=== PATIENT | female | born 1965 | race American Indian/Alaskan Native ===

== ENCOUNTER 2020-05-30 07:15 | Day surgery (SDC) | payer OTHER ==
--- NOTE | 2020-05-28 16:50 | History and Physical Report ---
History of Present Illness Date of examination: 05/26/20 History of present illness: Patient has been reassessed/reevaluated. H&P has been reviewed. No interval changes. This is a 54 years old female who presents with pelvic pain. The symptoms began 6 weeks ago. She denies dysuria, dysmenorrhea, dyspareunia, vaginal itching, vaginal discharge, vaginal odor, painful bowel movements, constipation, diarrhea, nausea, vomiting, back pain and fever. Pain is located suprapubic. She describes the pain as dull. Duration of pain is 5 min - 1 hour. Episodes are intermittent and unpredictable. Patient's work up has included a transvaginal ultrasound which revealed a thicken endometrium possible intracavitary mass. Patient was offered a hysterosonogram but opted for hysterscopy. Patient desires definitive diagnostic procedure.. Vital Signs: Patient Profile: 54 Years Old Female Height: 64.5 inches (163.83 cm) Weight: 224 pounds BMI: 37.85 Temp: 97.1 degrees F BP sittin / 60 (left arm) Current Method of Contraception: None Date of Last Pap Smear: 09/19/2019 Past History : 5 Term Births: 4 Premature Births: 0 Living Children: 4 Para: 4 Mult. Births: 0 Prev : 0 Aborta: 1 Elect. Ab: 1 Spont. 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 of genital herpes: yes Hx of STD: HPV Current Allergies (reviewed today): No known allergies Past Medical History: Diverticulosis colonoscopy 2016 negative Family History Summary: No Family History of Breast Cancer No Family History of Colon Cancer No Family History of Ovarvian Cancer No Family History of DVT/PE on OCP Social History: Patient is Risk Factors: Smoked Tobacco Use: Never smoker Smokeless Tobacco Use: Never Passive smoke exposure: no Drug use: no HIV high-risk behavior: no Caffeine use: 1 drinks per day Alcohol use: no Exercise: yes Times per week: 1 Seatbelt use: 100 % PAP Smear History: Date of Last PAP Smear: 09/19/2019 Review of Systems General Denies fever, chills, sweats, anorexia, fatigue, weakness, malaise, weight loss and sleep disorder. Complains of pelvic pain. Denies vaginal discharge, incontinence, dysuria, hematuria, urinary frequency, amenorrhea, menorrhagia, abnormal vaginal bleeding, genital sores, decreased libido, painful periods, painful sex, urinary urgency, hot flashes, vaginal dryness, vaginal itching and vaginal odor. CV Denies chest pains, palpitations, syncope, dyspnea on exertion, orthopnea, PND and peripheral edema. Resp Denies cough, dyspnea at rest, excessive sputum, hemoptysis, wheezing and pleurisy. GI Denies nausea, vomiting, diarrhea, constipation, change in bowel habits, abdominal pain, melena, hematochezia, jaundice, gas/bloating, indigestion/heartburn, dysphagia and odynophagia. Breast Denies left breast lump, right breast lump, nipple discharge, bloody discharge from nipple, breast pain, abnormal mammogram and breast enlargement. Psych Denies depression, anxiety, irritability and mood swings. Patient has been reassessed/reevaluated/re-examined. H&P has been reviewed. No interval changes. Past History Past Medical History: other (SEE HPI FOR DETAILS) Past Surgical History: Other (SEE HPI FOR DETAILS) Social history: full code, other (SEE HPI FOR DETAILS) Family history: other (SEE HPI FOR DETAILS) Medications and Allergies Allergies Allergy/AdvReac Type Severity Reaction Status Date / Time No Known Allergies Allergy Unverified 05/23/20 17:43 Home Medications Medication Instructions Recorded Confirmed Last Taken Type Ibuprofen 1 tab PO PRN 05/23/20 05/23/20 05/09/20 History Review of Systems Constitutional: other (SEE HPI FOR DETAILS) Exam - Physical Exam Narrative exam: HEENT: normocephalic, no lesions or deformities Skin no lesions Chest: respiratory effort normal, clear to auscultation CV: regular, normal S1-S2, no murmur, no rub, no gallop Abdomen: Obese,soft, non-tender, no masses, bowel sounds normal Neuro: no gross anomalities Extremities: no edema 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 No evidence of cystocele or rectocele. Cervix: normal appearance, no lesions, no discharge, lacerated Uterus: unable to palpate due to obesity Adnexae: unable to palpate due to obesity Rectovaginal: Rectal exam deferred due to colonoscopy recently performed or is planned Assessment and Plan - Patient Problems (1) Endometrial mass Current Visit: No Status: Acute Plan to address problem: Diagnosis explained to patient . Questions answered. Patient desires hysteroscopy ndications for and description of the hysteroscopy given. .Discussed risk of surgery including infection, bleeding and risk of perforating her uterus. Questions answered. Patient understands and desires to proceed (2) Pelvic pain Current Visit: No Status: Acute (3) Diverticulosis Current Visit: No Status: Chronic
[~2020-05-30 07:15] MED LIST: ACETAMINOPHEN 500 MG TAB PO SCH; LACTATED RINGERS 1,000 ML IV SCH; MIDAZOLAM 2 MG/2 ML INJ IV NR
[2020-05-30] MEDS ORDERED: ONDANSETRON 4 MG/2 ML INJ IV PRN (08:59)
[2020-05-30] MEDS ORDERED: fentaNYL 100 MCG/2 ML INJ IV PRN (08:59)
[2020-05-30] MEDS ORDERED: HYDROcodone/ACETAMINOPHEN 5-325 MG TAB PO PRN (08:59)
--- NOTE | 2020-05-30 08:59 | Anesthesia Consultation ---
Anesthesia Consult and Med Hx Date of service: 05/30/20 - Airway Anesthetic Teeth Evaluation: Good ROM Head & Neck: Adequate Mental/Hyoid Distance: Adequate Mallampati Class: Class III Intubation Access Assessment: Possibly Difficult - Pre-Operative Health Status ASA Pre-Surgery Classification: ASA1 Proposed Anesthetic Plan: General - Pulmonary Hx Smoking: No Hx Respiratory Symptoms: No - Cardiovascular System Hx Hypertension: No - Central Nervous System CVA: No - Endocrine Hx Renal Disease: No Hx Liver Disease: No Hx Insulin Dependent Diabetes: No Hx Non-Insulin Dependent Diabetes: No Hx Thyroid Disease: No - Other Systems Hx Obesity: Yes (BMI 39) - Additional Comments Anesthesia Medical History Comments: No hx anesthetic complications.
--- NOTE | 2020-05-30 08:59 | Anesthesia Day of Surgery ---
Anesthesia Day of Surgery - Day of Surgery Patient Examined: Yes Patient H&P Reviewed: Yes Patient is NPO: Yes
[2020-05-30] MEDS ORDERED: LIDOCAINE MPF (2%) 20 MG/1 ML VIAL 5 ML ONE (09:37)
[2020-05-30] MEDS ORDERED: propofoL 200 MG/20 ML VIAL IV ONE (09:37)
[2020-05-30] MEDS ORDERED: fentaNYL 100 MCG/2 ML INJ ONE (09:58)
[2020-05-30] MEDS ORDERED: PHENYLEPHRINE/NS 1,000 MCG/10 ML SYRINGE (OR USE) IV ONE (10:08)
[2020-05-30] MEDS ORDERED: KETOROLAC 30 MG/1 ML INJ ONE (10:08)
[2020-05-30] MEDS ORDERED: dexAMETHasone 20 MG/5 ML VIAL ONE (10:08)
[2020-05-30] MEDS ORDERED: ONDANSETRON 4 MG/2 ML INJ ONE (10:08)
[2020-05-30] MEDS ORDERED: SODIUM CHLORIDE 0.9% IRRIG SOLN 2000 ML IR ONE (10:12)
[2020-05-30] MEDS ORDERED: SILVER NITRATE APPLICATOR 1 EA TP ONE ×2 (10:24→10:43)
--- NOTE | 2020-05-30 10:44 | Operative Report ---
Operative Report Operative Report: Date of procedure: May 30, 2020 Pre-operative diagnosis: Endometrial mass Post-operative diagnosis: Probable intracavitary leiomyomata Procedure name(s): Hysteroscopy with endometrial biopsy D&C Surgeon: Rah Bush MD Supervisor Production Department: [] Anesthesia: General EBL: Minimal Complications: None Findings: Patient with any cavity endometrial mass, patible with a leiomyomata. The mass did occupy most of the cavity I did see the right fallopian tube ostium could not visualize the left ostium Specimen(s): Endometrial biopsy and curettage Procedure: Patient was brought to operating room. Where general anesthesia was induced on difficulty. She was placed in the dorsal lithotomy position. Prepped and draped in usual sterile manner. Urinary bladder was emptied with a red rubber catheter. Speculum was placed in the vagina. Tenaculum was placed at 12:00. The cervix was dilated progressively to operative hysteroscope could be placed without any difficulty. The hysteroscope was placed through the cervical os without any complications with the findings noted above. Biopsy obtained of the mass using an Allis clamp. Perform a banjo curetting which removes of minimal amount of tissue. The passes with the polyp forceps revealed no further tissue again the banjo curetting was done without any return of further tissue. Our instruments are removed. Silver nitrate was needed to achieve hemostasis from the tenaculum punctures. The patient tolerated the procedure well and was awakened in the operating room. Accompanied to the recovery room in good condition
--- NOTE | 2020-05-30 10:52 | Short Stay Summary ---
Short Stay Documentation Date of service: 05/30/20 - History Past Medical History: other (SEE HPI FOR DETAILS) Past Surgical History: Other (SEE HPI FOR DETAILS) Social history: full code, other (SEE HPI FOR DETAILS) - Allergies and Medications Current Medications: Allergies No Known Allergies Allergy (Unverified 05/23/20 17:43) Home Medications Medication Instructions Recorded Confirmed Last Taken Type Ibuprofen 1 tab PO PRN 05/23/20 05/23/20 05/09/20 History DOXYCYCLINE Hyclate [Vibramycin 100 mg PO Q12HR #14 capsule 05/30/20 Unknown Rx CAP] Ibuprofen [Motrin 800 MG tab] 800 mg PO Q6H PRN #30 tablet 05/30/20 Unknown Rx Active Medications Acetaminophen (Acetaminophen 500 Mg Tab) 1,000 mg PO PREOP MAYCO Stop: 05/30/20 23:59 Last Admin: 05/30/20 08:45 Dose: 1,000 mg Documented by: Hydrocodone Bitart/Acetaminophen (Hydrocodone/Acetaminophen 5-325 Mg Tab) 2 each PO ONCE PRN PRN Reason: Pain, Moderate (4-6) Fentanyl (Fentanyl 100 Mcg/2 Ml Inj) 50 mcg IV Q5MIN PRN PRN Reason: Pain , Severe (7-10) Lactated Ringer's (Lactated Ringers) 1,000 mls @ 100 mls/hr IV DIRECT MAYCO Stop: 05/30/20 23:59 Last Admin: 05/30/20 08:50 Dose: 100 mls/hr Documented by: Midazolam HCl (Midazolam 2 Mg/2 Ml Inj) 2 mg IV PREOP NR Stop: 05/30/20 23:59 Last Admin: 05/30/20 08:50 Dose: 2 mg Documented by: Ondansetron HCl (Ondansetron 4 Mg/2 Ml Inj) 4 mg IV ONCE PRN PRN Reason: Nausea And Vomiting - Physical exam HEENT: Atraumatic Lungs: Normal air movement Breasts: deferred Heart: Regular rate Gastrointestinal: normal Female Genitourinary: normal Rectal Exam: deferred Extremities: no ischemia, pulses intact - Brief post op/procedure progress note Date of procedure: 05/30/20 (See dictated operative note for details) Specimen disposition: to lab Condition: stable - Hospital course Hospital course: Patient was admitted underwent the above him procedure without any complications. Patient will be discharged with follow-up in office in 1-2 weeks for postop check. - Disposition Condition at discharge: Good Disposition: [id number] TO HOME OR SELFCARE - Discharge Diagnoses (1) Endometrial mass Status: Acute (2) Pelvic pain Status: Acute (3) Diverticulosis Status: Chronic Short Stay Discharge Plan Activity: advance as tolerated Diet: regular Follow up with: PRIMARY CARE, [Primary Care Provider] - 7 Days Prescriptions: Ibuprofen [Motrin 800 MG tab] 800 mg PO Q6H PRN #30 tablet PRN Reason: Pain DOXYCYCLINE Hyclate [Vibramycin CAP] 100 mg PO Q12HR #14 capsule
--- NOTE | 2020-05-30 11:39 | Post Anesthesia Evaluation ---
- Post Anesthesia Evaluation Patient Participated: Yes Airway Patent: Yes Stable Respiratory Function: Yes Nausea/Vomiting: No Temp > 96.8F: Yes Pain Manageable: Yes Adequeate Hydration: Yes Anesthesia Complications: No
[2020-05-30 12:20] VITALS: BP 135/67
== END 2020-05-30 07:16 | disposition home or self-care (01) ==
LOC: OR 07:15
PROVIDERS: ATTEND Obstetrics & Gynecology
DX: N94.89 Other specified conditions associated with female genital organs and menstrual cycle (principal); N85.8 Other specified noninflammatory disorders of uterus; E78.00 Pure hypercholesterolemia, unspecified; E66.9 Obesity, unspecified; Z72.89 Other problems related to lifestyle; Z79.899 Other long term (current) drug therapy; Z68.39 Body mass index [BMI] 39.0-39.9, adult; Z98.890 Other specified postprocedural states
CPT/HCPCS: 58558; 88305; A4217; J1100; J1885; J2250; J2370; J2405; J2704; J3010; J7120

== ENCOUNTER 2020-11-27 06:08 | Day surgery (SDC) | payer OTHER ==
--- NOTE | 2020-11-24 13:16 | Anesthesia Consultation ---
Anesthesia Consult and Med Hx Date of service: 11/27/20 - Airway Anesthetic Teeth Evaluation: Good ROM Head & Neck: Adequate Mental/Hyoid Distance: Adequate Mallampati Class: Class II Intubation Access Assessment: Good - Pre-Operative Health Status ASA Pre-Surgery Classification: ASA2 Proposed Anesthetic Plan: General Nerve Block: TAP - Pulmonary Hx Respiratory Symptoms: No - Central Nervous System Hx Psychiatric Problems: No - Endocrine Hx Insulin Dependent Diabetes: No Hx Non-Insulin Dependent Diabetes: No Hx Thyroid Disease: No - Other Systems Hx Alcohol Use: Yes (OCC WINE) Hx Cancer: No Hx Obesity: Yes (BMI 39)
[2020-11-24 13:32] LABS: Hematocrit 39.6 % (30.3-42.9); Hemoglobin 13.4 gm/dl (10.1-14.3); Mean Corpuscular HGB Conc 34 % (30-34); Mean Corpuscular Volume 89 fl (79-97); Platelet Count 310 K/mm3 (140-440); Red Blood Count 4.44 M/mm3 (3.65-5.03); Red Cell Distribution Width 14.2 % (13.2-15.2)
[2020-11-24 13:40] LABS: Blood Urea Nitrogen 11 mg/dL (7-17); Calcium 9.4 mg/dL (8.4-10.2); Hemolysis Index 12
[2020-11-24 13:51] LABS: BUN/Creatinine Ratio 18
[2020-11-24 16:53] LABS: Total Cells Counted 100
[2020-11-24 16:54] LABS: Platelet Estimate Consistent w Auto; RBC Morphology Normal
--- NOTE | 2020-11-25 10:31 | History and Physical Report ---
History of Present Illness Date of examination: 11/24/20 History of present illness: Patient has been reassessed/reevaluated. H&P has been reviewed. No interval changes. This is a 54 years old female who presents with pelvic pain and submucous leiomyoma. The symptoms began 4 months ago. She denies dysuria, dysmenorrhea, dyspareunia, vaginal itching, vaginal discharge, vaginal odor, painful bowel movements, constipation, diarrhea, nausea, vomiting, back pain and fever. Pain is located suprapubic. She describes the pain as dull. Duration of pain is 5 min - 1 hour. Episodes are intermittent and unpredictable. Patient's work up has included a transvaginal ultrasound which revealed a thicken endometrium poss ible intracavitary mass. Patient also underwent a hysteroscopy with D&C..Patient's symptoms when present disrupts her normal daily activities Patient desires definitive treatment ] Vital Signs: Patient Profile: 55 Years Old Female Height: 64.5 inches (163.83 cm) Weight: 223 pounds BMI: 37.68 Temp: 97.2 degrees F BP sittin / 60 (left arm) Current Method of Contraception: None Date of Last Pap Smear: 09/19/2019 Past History : 5 Term Births: 4 Premature Births: 0 Living Children: 4 Para: 4 Mult. Births: 0 Prev : 0 Aborta: 1 Elect. Ab: 1 Spont. Ab: 0 Ectopics: 0 Current Allergies (reviewed today): No known allergies Past Medical History: diverticulosis colonoscopy 2016 negative Submucosal Fibroids (05/30/2020) Past Surgical History: Knee Arthroscopy Right has had upper and lwoer gi Hysteroscopy with D&C: (05/30/2020) Family History Summary: eneral Comments - FH: No Family History of Breast Cancer No Family History of Colon Cancer No Family History of Ovarvian Cancer No Family History of DVT/PE on OCP Social History: Patient is Smoking History: Patient has never smoked. Risk Factors: Smoked Tobacco Use: Never smoker Smokeless Tobacco Use: Never Passive Smoke Exposure: no Caffeine Use: 1 drinks per day Exercise: yes Times/wk: 1 Seatbelt Use: 100 % PAP Smear History: Date of Last PAP Smear: 09/19/2019 [employer] [employer] History Operations: Knee Arthroscopy Right has had upper and lwoer gi Hysteroscopy with D&C: (05/30/2020) Abnormal PAP: positive Infection History HIV Risk Eval: no Personal hx. of genital herpes: yes Hx of STD: HPV Review of Systems General Denies fever, chills, sweats, anorexia, fatigue, weakness, malaise, weight loss and sleep disorder. Complains of pelvic pain. Denies vaginal discharge, incontinence, dysuria, hematuria, urinary frequency, amenorrhea, menorrhagia, abnormal vaginal bleeding, genital sores, decreased libido, painful periods, painful sex, urinary urgency, hot flashes, vaginal dryness, vaginal itching and vaginal odor. CV Denies chest pains, palpitations, syncope, dyspnea on exertion, orthopnea, PND and peripheral edema. Resp Denies cough, dyspnea at rest, excessive sputum, hemoptysis, wheezing and pleurisy. GI Denies nausea, vomiting, diarrhea, constipation, change in bowel habits, abdominal pain, melena, hematochezia, jaundice, gas/bloating, indigestion/heartburn, dysphagia and odynophagia. Breast Denies left breast lump, right breast lump, nipple discharge, bloody discharge from nipple, breast pain, abnormal mammogram and breast enlargement. Psych Denies depression, anxiety, irritability and mood swings. Past History Past Medical History: other (SEE HPI FOR DETAILS) Past Surgical History: Other (SEE HPI FOR DETAILS) Social history: full code, other (SEE HPI FOR DETAILS) Family history: other (SEE HPI FOR DETAILS) Medications and Allergies Allergies Allergy/AdvReac Type Severity Reaction Status Date / Time No Known Allergies Allergy Unverified 11/21/20 16:26 Home Medications Medication Instructions Recorded Confirmed Last Taken Type Ibuprofen [Motrin 800 MG tab] 800 mg PO Q6H PRN #30 tablet 05/30/20 11/21/20 Unknown Rx Active Meds: Active Medications Acetaminophen (Acetaminophen 500 Mg Tab) 1,000 mg PO ONCE ONE Stop: 11/27/20 06:01 Celecoxib (Celecoxib 200 Mg Cap) 400 mg PO PREOP NR Stop: 11/27/20 23:59 Fentanyl (Fentanyl 100 Mcg/2 Ml Inj) 100 mcg IV ONCE ONE Stop: 11/27/20 06:01 Cefazolin Sodium (Ancef/Sterile Water 2 Gm/20 Ml) 2 gm in 20 mls @ 80 mls/hr IV PREOP NR; Protocol Stop: 11/27/20 21:00 Lactated Ringer's (Lactated Ringers) 1,000 mls @ 125 mls/hr IV DIRECT MAYCO Magnesium Oxide (Magnesium Oxide 400 Mg Tab) 400 mg PO ONCE ONE Stop: 11/27/20 06:01 Midazolam HCl (Midazolam 2 Mg/2 Ml Inj) 2 mg IV PREOP NR Stop: 11/27/20 23:59 Review of Systems Constitutional: other (SEE HPI FOR DETAILS) Exam - Physical Exam Narrative exam: HEENT: normocephalic, no lesions or deformities Skin no lesions Chest: respiratory effort normal, clear to auscultation CV: regular, normal S1-S2, no murmur, no rub, no gallop Abdomen: Obese,soft, non-tender, no masses, bowel sounds normal Neuro: no gross anomalities Extremities: no edema [employer] Exams Vulva/Vagina: normal appearance, no discharge, lesions. No evidence of cystocele or rectocele. Cervix: normal appearance, no lesions, no discharge, lacerated Uterus: unable to palpate due to obesity Adnexae: unable to palpate due to obesity Rectovaginal: Rectal exam deferred due to colonoscopy recently performed or is planned - Constitutional Vitals: Temp Pulse Resp BP Pulse Ox 98.1 F 81 18 132/76 100 11/24/20 12:25 11/24/20 12:25 11/24/20 12:25 11/24/20 12:25 11/24/20 12:25 Results - Labs CBC & Chem 7: 11/24/20 12:30 11/24/20 10:20 Labs: Abnormal lab results 11/24/20 Range/Units 12:30 WBC 3.8 L (4.5-11.0) K/mm3 Seg Neuts % (Manual) 34.0 L (40.0-70.0) % Lymphocytes % (Manual) 60.0 H (13.4-35.0) % Seg Neutrophils # Man 1.3 L (1.8-7.7) K/mm3 Assessment and Plan - Patient Problems (1) Submucous leiomyoma of uterus Current Visit: No Status: Acute Plan to address problem: Diagnosis explained to patient . Questions answered. Discussed with patient various medical, surgical and radiological therapies common for treatment including expectant management, myomectomy hysterectomy and uterine artery embolization Patient's symptoms when present disrupts her normal daily activities Patient desires definitive treatment .Patient desires hysterectomy Discussed risks and benefits of laparotomy, laparoscopy, vaginal and robotic assisted approaches for hysterectomies Patient desires robotic assisted total hysterectomy. Consent reviewed and signed . The risks and alternatives for this surgery were reviewed with the patient. Discuss the risks of the surgery including infection, bleeding possibly heavy enough to require a blood transf usion, possible damage to bowel, bladder or ureter. Patient understand that this surgery with make her sterile.Patient understands if her ovaries are removed she will become menopausal. Also if unable to complete robitcally a laparotomy may be required. Also discussed due to COVID epidemic and limitations on the hospital's inpatient bed availability ,if upon the initial laparoscopic veiw of her anatomy rules her out as a candidate for outpatient robotic asstisted surgery the procedure will be stopped. and she will be recheduled. Patient understands and desires to proceed. (2) Pelvic pain Current Visit: No Status: Acute Plan to address problem: Probably secondary to # 1 (3) Diverticulosis Current Visit: No Status: Chronic
[~2020-11-27 06:08] MED LIST changes: +ACETAMINOPHEN 500 MG TAB PO ONE; -ACETAMINOPHEN 500 MG TAB PO SCH; +CELECOXIB 200 MG CAP PO NR; -LACTATED RINGERS 1,000 ML IV SCH; +MAGNESIUM OXIDE 400 MG TAB PO ONE; +fentaNYL 100 MCG/2 ML INJ IV ONE
[2020-11-27] MEDS ORDERED: ceFAZolin/Water 2 GM/20 ML 2 GM/20 ML SYRINGE IV NR (07:00)
[2020-11-27] MEDS ORDERED: ROCURONIUM 50 MG/5 ML INJ IV ONE ×2 (07:17→09:32)
[2020-11-27] MEDS ORDERED: propofoL 200 MG/20 ML VIAL IV ONE (07:17)
[2020-11-27] MEDS ORDERED: KETAMINE/STERILE WATER 50 MG/ML SYRINGE ONE (07:17)
[2020-11-27] MEDS ORDERED: ONDANSETRON 4 MG/2 ML INJ ONE (07:17)
[2020-11-27] MEDS ORDERED: LIDOCAINE MPF (2%) 20 MG/1 ML VIAL 5 ML ONE (07:17)
[2020-11-27] MEDS ORDERED: dexAMETHasone 20 MG/5 ML VIAL ONE (07:17)
[2020-11-27] MEDS: LACTATED RINGERS 1,000 ML IV SCH ×3 (07:20→13:30)
[2020-11-27] MEDS ORDERED: BUPIVACAINE/PF (0.25%) 2.5 MG/ML 30 ML VIAL INFILTRATI ONE (07:21)
[2020-11-27] MEDS ORDERED: dexAMETHasone 4 MG/ML VIAL ONE (07:21)
--- NOTE | 2020-11-27 07:24 | Anesthesia Day of Surgery ---
Anesthesia Day of Surgery - Day of Surgery Patient Examined: Yes Patient H&P Reviewed: Yes Patient is NPO: Yes
[2020-11-27] MEDS ORDERED: NEOMY 40 MG/POLYMYXIN B 200,000 UNITS/ML (GU) AMPULE IR ONE ×2 (07:25→08:46)
[2020-11-27] MEDS ORDERED: ONDANSETRON 4 MG/2 ML INJ IV PRN (08:30)
[2020-11-27] MEDS ORDERED: HYDROmorphone 1 MG/1 ML INJ IV PRN (08:30)
[2020-11-27] MEDS ORDERED: fentaNYL 100 MCG/2 ML INJ ONE (08:38)
[2020-11-27] MEDS ORDERED: SODIUM CHLORIDE 0.9% IRR 1,500 ML BOTTLE IR ONE (08:46)
[2020-11-27] MEDS ORDERED: SODIUM CHLORIDE 0.9% IRRIG SOLN 2000 ML IR ONE (08:47)
[2020-11-27] MEDS ORDERED: ePHEDrine SULFATE 50 MG/1 ML INJ ONE (09:33)
[2020-11-27] MEDS ORDERED: LACTATED RINGERS 1,000 ML ONE (09:53)
[2020-11-27] MEDS ORDERED: KETOROLAC 30 MG/1 ML INJ ONE (10:08)
[2020-11-27] MEDS ORDERED: NEOSTIGMINE 10MG/10 ML INJ MDV ONE (10:16)
[2020-11-27] MEDS ORDERED: GLYCOPYRROLATE 0.4 MG/2 ML INJ ONE (10:16)
[2020-11-27] MEDS ORDERED: HYDROcodone/ACETAMINOPHEN 5-325 MG TAB PO PRN (10:24)
--- NOTE | 2020-11-27 10:30 | Operative Report ---
Operative Report Operative Report: Operative Report: Date of procedure: November 27, 2020 Pre-operative diagnosis: Pelvic pain, submucous leiomyomata Post-operative diagnosis: Same plus pelvic adhesive disease Procedure name(s): Robotic assisted total hysterectomy with bilateral salpingo- oophorectomy with lysis of adhesions Surgeon: Rah Bush MD Flight Service Specialist: Solange Wayne, certified registered locksmith Anesthesia: General EBL: 50 mL Complications: None Findings: Uterus approximately 8-10 weeks in size. Patient with omental adhesions on anterior abdominal wall adhesions between the uterus and bilateral adnexa and adnexa and pelvic sidewalls. Patient also with adhesions and posterior cul-de-sac. Normal-appearing ovaries. Specimen(s): Uterus including cervix was bilateral adnexa Procedure: Patient was brought to the operating room where general anesthesia was induced without difficulty. Patient was placed in the dorsal lithotomy position. Prepped and draped in the usual sterile manner for robotic procedure. [place] catheter was placed without difficulty. Speculum was placed in the vagina. A medium V-Care Uterine manipulator was placed without difficulty. Attention was now switched to the patient's abdomen. A vertical supra-umbilicus incision was made with a scalpel. A 10-12 trocar was placed in this incision under direct visualization. Intra-abdominal placement was verified with no evidence of internal organ damage. The patient was insufflated approximately 3- 1/2 L of CO2 gas. The patient pelvic findings were noted as above. It was determined that the patient was a candidate for robotic procedure. On both sides the umbilical incision at 8 cm, incisions were made for robotic trocar. Each robotic trocar was placed under direct visualization with no evidence of internal organ damage. One middle [employer] assistant principal ports were then placed. One 5 mm trocar was placed 2 fingerbreadths above the right iliac crest. Through the right lower quadrant trocar 5 mm laparoscope was then placed visualizing the midline incision. The midline trocar was then removed a Mono Bustos fascial closure system was in place under direct visualization. The large trocar was then placed again through the incision. At this time the patient was placed in extreme Trendelenburg. The da Anuj robot was then docked on the patient's left side. The trochars was then connected the da Anuj robotic arms. At this time I took my place under the robotic operating loving. The omental adhesions were taken down sharply with the robotic scissors. The adhesions on both of the adnexa and between the uterus and abdominal sidewall, normalized in the patient's anatomy. Then starting on the patient's right side using the vessel sealer with the right ureter was clearly seen out of the operative field. The ovarian vessels were clearly seen cauterize and cut with the robotic scissors. The meso salpinx were cauterized and cut reaching to the round ligament. The round ligament was cauterized and cut. The leaves of the broad ligament on that side was anteriorly and posteriorly. The anterior leaves were use to form a bladder flap anteriorly the posterior leaf was cut exposing the uterine vessels on that side. The uterine vessels were cauterized and cut the bladder flap was more clearly made. Attention was then switched to the patient's left side. Where the ureter was again identified and cleared out of the field. The same procedure was cauterized and cut and the ovarian vessels and receiving with some incising the round ligament broad the broad ligament then cauterized and cut and the uterine vessels were performed.. At this time the uterus was appearing very cyanotic. After inspecting the bladder flap insured no evidence of bladder injury, the colpotomy was then started. Incision started at 6:00 using a robotic scissors until the V-Care could be seen. This incision was extended from 6:00 to 9:00. Then from 6:00 to 3:00. Then from 9:00 to 12:00. This incision was extended from 3:00 to 12:00. At this time colpotomy was complete with no evidence of adjacent organ damage. The middle school assistant principal remove the uterus from through the colpotomy site. The vaginal cuff was irrigated and cauterized and found to be hemostatic. The cuff was closed with roboticly using 0 V- Lock suture. This closure was hemostatic after irrigation and Bovie. All pedicles were inspected and found to be hemostatic. The ureters were identified bilaterally and found to be functioning normal. The [place] bag had clear yellow urine. Surgicell powder was placed across the vaginal cuff. All instruments were then removed. The large trocar site was closed in layers and 4-0 Monocryl. The smaller incisions were closed subcuticularly with 4-0 Monocryl. The patient tolerated procedure well. She was awakened in the operating room and accompanied to the recovery room in good condition.
[2020-11-27] MEDS: HYDROmorphone 1 MG/1 ML INJ IV PRN ×4 (11:19→13:04)
[2020-11-27 14:27] VITALS: BP 130/63
--- NOTE | 2020-11-27 14:42 | Short Stay Summary ---
Short Stay Documentation Date of service: 11/27/20 - History Principal diagnosis: Submucosal leiomyomata with pelvic pain H&P: dictated Past Medical History: other (SEE HPI FOR DETAILS) Past Surgical History: Other (SEE HPI FOR DETAILS) Social history: full code, other (SEE HPI FOR DETAILS) - Allergies and Medications Current Medications: Allergies No Known Allergies Allergy (Unverified 11/21/20 16:26) Home Medications Medication Instructions Recorded Confirmed Last Taken Type Ibuprofen [Motrin 800 MG tab] 800 mg PO Q6H PRN #30 tablet 05/30/20 11/21/20 Unknown Rx Ibuprofen [Motrin] 800 mg PO TID PRN #30 tablet 11/27/20 Unknown Rx metroNIDAZOLE [Flagyl] 500 mg PO Q12HR #14 tab 11/27/20 Unknown Rx oxyCODONE /ACETAMINOPHEN [Percocet 1 - 2 tab PO Q6HR PRN #20 tablet 11/27/20 Unknown Rx 5/325 mg] Active Medications Hydrocodone Bitart/Acetaminophen (Hydrocodone/Acetaminophen 5-325 Mg Tab) 2 each PO Q6H PRN PRN Reason: Pain, Moderate (4-6) Last Admin: 11/27/20 13:59 Dose: 2 each Documented by: Celecoxib (Celecoxib 200 Mg Cap) 400 mg PO PREOP NR Stop: 11/27/20 23:59 Last Admin: 11/27/20 07:20 Dose: 400 mg Documented by: Hydromorphone HCl (Hydromorphone 1 Mg/1 Ml Inj) 0.25 mg IV Q10MIN PRN PRN Reason: Pain, Moderate (4-6) Stop: 11/27/20 17:00 Lactated Ringer's (Lactated Ringers) 1,000 mls @ 125 mls/hr IV DIRECT MAYCO Last Admin: 11/27/20 13:30 Dose: 125 mls/hr Documented by: Midazolam HCl (Midazolam 2 Mg/2 Ml Inj) 2 mg IV PREOP NR Stop: 11/27/20 23:59 Last Admin: 11/27/20 07:32 Dose: 2 mg Documented by: Ondansetron HCl (Ondansetron 4 Mg/2 Ml Inj) 4 mg IV ONCE PRN PRN Reason: Nausea And Vomiting Stop: 11/27/20 15:00 - Physical exam General appearance: no acute distress, well-nourished Integumentary: no rash HEENT: Atraumatic Lungs: Normal air movement Breasts: deferred Heart: Regular rate Gastrointestinal: tenderness (Appropriate postop), distended (Appropriate post robotic surgery), other (Incisions intact) Female Genitourinary: normal Rectal Exam: deferred Extremities: no ischemia, pulses intact - Brief post op/procedure progress note Date of procedure: 11/27/20 (See dictated operative note for details) Condition: stable - Hospital course Hospital course: Patient was admitted underwent the above him procedure without any complications. Patient was admitted and underwent above procedure without complications. Her post operative extended recovery observation course was benign she was afebrile throughout. Patient had no orthostatic symptoms. Patient was tolerating diet and voiding without difficulty at time of discharge. Patient incision was healing well without evidence of infection. Patient will be discharged with follow-up in office in 1-2 weeks for postop check - Disposition Condition at discharge: Good Disposition: 01 HOME / SELF CARE / HOMELESS - Discharge Diagnoses (1) Submucous leiomyoma of uterus Status: Acute (2) Pelvic pain Status: Acute (3) Diverticulosis Status: Chronic Short Stay Discharge Plan Activity: advance as tolerated Diet: regular Wound: open to air, keep clean and dry Additional Instructions: Patient to call office for any fever, chills, nausea, vomiting or pain not controlled by pain medication. Follow up with: DR KEVIN [Other] - 7 Days Prescriptions: metroNIDAZOLE [Flagyl] 500 mg PO Q12HR #14 tab Ibuprofen [Motrin] 800 mg PO TID PRN #30 tablet PRN Reason: Pain oxyCODONE /ACETAMINOPHEN [Percocet 5/325 mg] 1 - 2 tab PO Q6HR PRN #20 tablet PRN Reason: Pain
== END 2020-11-27 15:40 | disposition home or self-care (01) ==
LOC: OR 06:08
PROVIDERS: ATTEND Obstetrics & Gynecology
DX: D25.0 Submucous leiomyoma of uterus (principal); D25.1 Intramural leiomyoma of uterus; R10.2 Pelvic and perineal pain; E78.00 Pure hypercholesterolemia, unspecified; E66.9 Obesity, unspecified; Z79.899 Other long term (current) drug therapy; Z98.890 Other specified postprocedural states; Z20.822 Contact with and (suspected) exposure to COVID-19
CPT/HCPCS: 36415; 58571; 64488; 80048; 81025; 85025; 86850; 86900; 86901; 88307; A4217; J0690; J1100; J1170; J1885; J2250; J2405; J2704; J2710; J3010; J3490; J7120; S2900; U0003; 64450